=== PATIENT | female | born 1975 | race African-American/Black ===

== ENCOUNTER 2016-11-17 15:10 | Emergency (ER) | payer MEDICAID ==
[~2016-11-17 15:10] MED LIST: ALBUAER3 INH; DIVA250ER PO; LISI-515 PO; METH500T3 PO; NAPR500 PO; PROT40TA PO; SYMB160A INH; VIIB20TA PO; WELL200T PO
[2016-11-17] MEDS ORDERED: ALBUAER3 INH (15:22)
[2016-11-17] MEDS ORDERED: SODIUM CHLORIDE 0.9% FLUSH 10 ML FLUSH IVF PRN (15:30)
--- NOTE | 2016-11-17 15:32 | PD ---
HPI Chief Complaint: Chest Pain Time Seen by Provider: 15:24 Travel History International Travel<30 days: No Contact w/Intl Traveler<30days: No Traveled to known affect area: No History of Present Illness HPI The patient was seen and examined in the presence of the nurse. This patient complains of chest pain. When she woke up from sleep is morning he was present. It's located under her left breast. It waxed and waned during the day. It is much improved at this point no alleviating factors. Duration one day. Severity of symptoms is mild to moderate. She denies history of coronary artery disease. She had septal defect repair of her heart as a young child. PFSH Past Medical History Arthritis: Yes Asthma: Yes Autoimmune Disease: No Bipolar Disorder: Yes Anxiety: Yes Depression: Yes Cardiovascular Problems: Yes Diminished Hearing: Yes (BILATERAL) GERD: Yes Genitourinary: Yes (ENDOMETRIAL ULCERS) Hypertension: Yes Reproductive: Yes Immunizations Current: No Tetanus Vaccination: > 5 Years Influenza Vaccination: No PNEUMOCCOCAL Vaccine (Year): 3 ?: Not : 3 Para: 3 Ovarian Cysts: Yes (LEFT OOPHERECTOMY, OVARIAN CYST ON RIGHT) Past Surgical History Cardiac Surgery: Yes (hole repair) Cholecystectomy: Yes Coronary Stent: Yes Gynecologic Surgery: Yes Hysterectomy: Yes Other Surgery: Yes Social History Alcohol Use: No Tobacco Use: No Substance Use: No Allergies-Medications (Allergen,Severity, Reaction): Coded Allergies: No Known Allergies (Verified , 11/17/16) Reported Meds & Prescriptions Reported Meds & Active Scripts Active Reported Proair Hfa 8.5 GM Inh (Albuterol Sulfate) 90 Mcg/Act Aer 1 Puff INH Q4H PRN 108 mcg/actuation Lisinopril 20 Mg Tab 20 Mg PO DAILY Protonix (Pantoprazole Sodium) 40 Mg Tab 40 Mg PO DAILY Symbicort Inh (Budesonide/Formoterol Fumarate) 160-4.5 Mcg/Act Aero 2 Puff INH Q12HR Proair Hfa 8.5 GM Inh (Albuterol Sulfate) 90 Mcg/Act Aer 2 Puff INH Q4-6H PRN 108 mcg/actuation Review of Systems General / Constitutional: No: Fever Eyes: No: Visual changes HENT: No: Headaches Cardiovascular: Positive: Chest Pain or Discomfort Respiratory: No: Shortness of Breath Gastrointestinal: No: Abdominal Pain Genitourinary: No: Dysuria Musculoskeletal: No: Pain Skin: No Rash Neurologic: No: Weakness Psychiatric: No: Depression Endocrine: No: Polydipsia Hematologic/Lymphatic: No: Easy Bruising Physical Exam Narrative GENERAL: Well-nourished, well-developed patient in no apparent distress. SKIN: Focused skin assessment reveals no rash and nodules. Skin is Warm and dry. HEAD: Atraumatic. Normocephalic. EYES: Pupils equal and round. No scleral icterus. No injection or drainage. ENT: No nasal bleeding or discharge. Mucous membranes pink and moist. NECK: Trachea midline. No JVD. CARDIOVASCULAR: Regular rate and rhythm. No murmur appreciated. RESPIRATORY: No accessory muscle use. Clear to auscultation. Breath sounds equal bilaterally. GASTROINTESTINAL: Abdomen soft, non-tender, nondistended. Hepatic and splenic margins not palpable. MUSCULOSKELETAL: No obvious deformities. No clubbing. No cyanosis. No edema. Readily reproducible chest wall tenderness in the midaxillary line underneath the left breast. NEUROLOGICAL: Awake and alert. No obvious cranial nerve deficits. Motor grossly within normal limits. Normal speech. PSYCHIATRIC: Appropriate mood and affect; insight and judgment normal. Data Data Last Documented VS Vital Signs Date Time Temp Pulse Resp B/P Pulse Ox O2 Delivery O2 Flow Rate FiO2 11/17/16 15:20 89 16 98 Room Air Orders Electrocardiogram (11/17/16 ) Basic Metabolic Panel (Bmp) (11/17/16 15:25) Ckmb (Isoenzyme) Profile (11/17/16 15:25) Complete Blood Count With Diff (11/17/16 15:25) Troponin I (11/17/16 15:25) Chest, Single Ap (11/17/16 15:25) Ecg Monitoring (11/17/16 15:25) Iv Access Insert/Monitor (11/17/16 15:25) Sodium Chloride 0.9% Flush (Ns Flush) (11/17/16 15:30) CKMB (11/17/16 15:30) CKMB% (11/17/16 15:30) Labs Laboratory Tests Test 11/17/16 15:30 White Blood Count 7.0 TH/MM3 Red Blood Count 4.61 MIL/MM3 Hemoglobin 12.7 GM/DL Hematocrit 39.1 % Mean Corpuscular Volume 84.7 FL Mean Corpuscular Hemoglobin 27.6 PG Mean Corpuscular Hemoglobin 32.6 % Concent Red Cell Distribution Width 12.6 % Platelet Count 228 TH/MM3 Mean Platelet Volume 9.7 FL Neutrophils (%) (Auto) 64.8 % Lymphocytes (%) (Auto) 26.5 % Monocytes (%) (Auto) 6.5 % Eosinophils (%) (Auto) 1.4 % Basophils (%) (Auto) 0.8 % Neutrophils # (Auto) 4.5 TH/MM3 Lymphocytes # (Auto) 1.9 TH/MM3 Monocytes # (Auto) 0.5 TH/MM3 Eosinophils # (Auto) 0.1 TH/MM3 Basophils # (Auto) 0.1 TH/MM3 CBC Comment DIFF FINAL Differential Comment Sodium Level 142 MEQ/L Potassium Level 3.3 MEQ/L Chloride Level 110 MEQ/L Carbon Dioxide Level 24.3 MEQ/L Anion Gap 8 MEQ/L Blood Urea Nitrogen 7 MG/DL Creatinine 0.81 MG/DL Estimat Glomerular Filtration 94 ML/MIN Rate Random Glucose 101 MG/DL Calcium Level 8.5 MG/DL Total Creatine Kinase 124 U/L Creatine Kinase MB LESS THAN 0.5 NG/ML Troponin I LESS THAN 0.02 NG/ML MDM Medical Decision Making Medical Screen Exam Complete: Yes Emergency Medical Condition: Yes Medical Record Reviewed: Yes Differential Diagnosis Differential diagnosis includes TX, angina, pericarditis, pleurisy, GERD, anxiety. Narrative Course I have reviewed the patient's electronic medical record. IV placed I reviewed the EKG which shows sinus rhythm but no acute ST elevation I reviewed the chest x-ray which is normal Extended cardiac monitoring shows sinus rhythm without ectopy CBC is normal Metabolic profile is normal CK is normal Troponin is normal On recheck the patient and well. No indication of ACS. Her chest pain is clearly musculoskeletal chest wall pain. His reproducible with palpation in a very obvious manner. She will not require inpatient stay for this. He will call her family physician Saturday for follow-up. Diagnosis Primary Impression: Musculoskeletal chest pain Additional Instructions: The patient was advised to follow up with their physician and return if they worsen. Med/Other Pt SpecificInfo: Other Disposition: 01 DISCHARGE HOME Condition: Stable Hitesh Sousa MD Nov 17, 2016 15:32
[2016-11-17 15:44] LABS: AUTOMATED NEUTROPHIL # 4.5 TH/MM3 (1.8-7.7); BASOPHIL # 0.1 TH/MM3 (0-0.2); BASOPHIL % 0.8 % (0.0-2.0); EOSINOPHIL # 0.1 TH/MM3 (0-0.4); EOSINOPHIL % 1.4 % (0.0-4.0); HEMATOCRIT 39.1 % (35.0-46.0); HEMO FLAGS DIFF FINAL; LYMPH % 26.5 % (9.0-44.0); LYMPHOCYTE # 1.9 TH/MM3 (1.0-4.8); MEAN CELL VOLUME 84.7 FL (80.0-100.0); MEAN CORPUSCULAR HEMOGLOBIN 27.6 PG (27.0-34.0); MEAN CORPUSCULAR HGB CONC 32.6 % (32.0-36.0); MONO % 6.5 % (0.0-8.0); NEUT % 64.8 % (16.0-70.0); PLATELET COUNT 228 TH/MM3 (150-450); RED BLOOD COUNT 4.61 MIL/MM3 (4.00-5.30); RED CELL DISTRIBUTION WIDTH 12.6 % (11.6-17.2)
[2016-11-17 16:05] LABS: ANION GAP 8 MEQ/L (5-15); BICARBONATE 24.3 MEQ/L (21.0-32.0); BLOOD UREA NITROGEN 7 MG/DL (7-18); CHLORIDE 110 MEQ/L (98-107); GLOMERULAR FILTRATION RATE 94 ML/MIN (>89); POTASSIUM 3.3 MEQ/L (3.5-5.1); SODIUM (NA) 142 MEQ/L (136-145)
[2016-11-17 16:09] LABS: CREATINE KINASE 124 U/L (26-192)
[2016-11-17 16:21] LABS: CKMB LESS THAN 0.5 NG/ML (0.5-3.6)
--- NOTE | 2016-11-17 16:29 | RADRPT ---
EXAM DATE/TIME: 11/17/2016 15:52 [facility] COMPARISON: No previous studies available for comparison. INDICATIONS : Chest pain. MEDICAL HISTORY : None. SURGICAL HISTORY : CABG. ENCOUNTER: Initial ACUITY: 1 day PAIN SCORE: 7/10 LOCATION: Bilateral chest FINDINGS: A single view of the chest demonstrates subsegmental basilar air space disease. No effusion. No pneum othorax. Heart size upper limits normal. Median sternotomy. CONCLUSION: 1. Subsegmental airspace disease at the lung bases most characteristic of atelectasis. No effusion or pneumothorax. Deon Larios MD on November 17, 2016 at 16:27 Board Certified Radiologist. This report was verified electronically.
--- NOTE | 2016-11-18 14:16 | EKG ---
Date Performed: 11/17/2016 Time Performed: 15:25:27 PTAGE: 40 years EKG: Low QRS in precordial leads Small inferior Q waves of undetermined significance Nonspecific T wave changes anteriorly Compared to previous tracing, previous tracing had such marked baseline ar tifact that it was not interpretable. BORDERLINE ECG PREVIOUS TRACING : 06/25/2016 20.31 DOCTOR: Juan J Gallego Interpretating Date/Time 11/18/2016 14:16:09
== END 2016-11-17 18:55 | disposition home or self-care (01) ==
LOC: NEPC 15:10
DX: R07.89 Other chest pain (principal); R94.31 Abnormal electrocardiogram [ECG] [EKG]; I10 Essential (primary) hypertension; H91.93 Unspecified hearing loss, bilateral; Z87.39 Personal history of other diseases of the musculoskeletal system and connective tissue; Z87.09 Personal history of other diseases of the respiratory system; Z86.59 Personal history of other mental and behavioral disorders; Z86.79 Personal history of other diseases of the circulatory system; Z87.19 Personal history of other diseases of the digestive system; Z87.42 Personal history of other diseases of the female genital tract
CPT/HCPCS: 71010; 80048; 82550; 82552; 84484; 85025; 93005

== ENCOUNTER 2016-11-29 22:34 | Emergency (ER) | payer MEDICAID ==
[~2016-11-29] VITALS: Ht 162.6 cm; Wt 103.0 kg
[~2016-11-29 22:34] MED LIST changes: -DIVA250ER PO; -METH500T3 PO; -NAPR500 PO; -VIIB20TA PO; -WELL200T PO
[2016-11-29 23:12] VITALS: BP 130/62; PULSE 66; RESP 16; TEMP 98.2; O2SAT 96
[2016-11-29] MEDS ORDERED: SODIUM CHLOR 0.9% 1000 ML INJ 1,000 ML IV SCH (23:26)
[2016-11-29] MEDS ORDERED: SODIUM CHLORIDE 0.9% FLUSH 10 ML FLUSH IV FLUSH PRN (23:30)
[2016-11-29 23:45] LABS: BASOPHIL # 0.1 TH/MM3 (0-0.2); BASOPHIL % 0.9 % (0.0-2.0); EOSINOPHIL # 0.1 TH/MM3 (0-0.4); EOSINOPHIL % 1.5 % (0.0-4.0); HEMATOCRIT 36.3 % (35.0-46.0); HEMO FLAGS DIFF FINAL; LYMPH % 33.5 % (9.0-44.0); LYMPHOCYTE # 2.4 TH/MM3 (1.0-4.8); MEAN CELL VOLUME 83.5 FL (80.0-100.0); MEAN CORPUSCULAR HEMOGLOBIN 28.2 PG (27.0-34.0); MEAN CORPUSCULAR HGB CONC 33.8 % (32.0-36.0); MONO % 8.9 % (0.0-8.0); NEUT % 55.2 % (16.0-70.0); PLATELET COUNT 212 TH/MM3 (150-450); RED BLOOD COUNT 4.35 MIL/MM3 (4.00-5.30); RED CELL DISTRIBUTION WIDTH 12.8 % (11.6-17.2); WHITE BLOOD COUNT 7.3 TH/MM3 (4.0-11.0)
[2016-11-30 00:09] LABS: ANION GAP 6 MEQ/L (5-15); AST (GOT) 17 U/L (15-37); BICARBONATE 27.1 MEQ/L (21.0-32.0); BLOOD UREA NITROGEN 8 MG/DL (7-18); CHLORIDE 108 MEQ/L (98-107); GLOMERULAR FILTRATION RATE 74 ML/MIN (>89); POTASSIUM 3.3 MEQ/L (3.5-5.1); SODIUM (NA) 141 MEQ/L (136-145)
[2016-11-30 00:12] LABS: ALKALINE PHOSPHATASE 99 U/L (45-117); ALT (GPT) 29 U/L (10-53); TOTAL BILIRUBIN ADULT 0.3 MG/DL (0.2-1.0)
[2016-11-30 00:15] LABS: BACTERIA, URINE RARE /hpf; BLOOD, URINE NEG (NEG); COMMENT (UR) CULT NOT INDICATED; CULTURE IF INDICATED CULT NOT INDICATED; GLUCOSE,URINE NEG (NEG); HYALINE CAST, URINE 1 /lpf (RARE); KETONE, URINE NEG (NEG); MUCUS URINE FEW /lpf (OCC); NITRITE,URINE NEG (NEG); PH, URINE 6.5 (5.0-8.5); SQUAMOUS EPITHELIAL CELL URINE 6 /hpf (0-5); URINE COLOR YELLOW (YELLW/STRAW)
[2016-11-30] MEDS ORDERED: POTASSIUM CHLORIDE 25 MEQ EFFERVESCENT TAB PO ONE (00:15)
--- NOTE | 2016-11-30 00:24 | PD ---
HPI Chief Complaint: Abdominal Pain Time Seen by Provider: 23:14 Travel History International Travel<30 days: No Contact w/Intl Traveler<30days: No Traveled to known affect area: No History of Present Illness HPI 40-year-old female came to the emergency room with history of left upper quadrant pain. Patient says the pain occurred 45 minutes ago sudden onset, sharp in nature and severe. No radiation of the pain. No aggravating or relieving factors. However pain is slowly easing up now. Vital signs are stable. Patient has a GI specialist that she follows up with. She also had a CAT scan of her abdomen couple days ago. She is due to get an ultrasound of her liver next week. Vital signs are otherwise stable. No history of vomiting or diarrhea. Patient is getting treated for UTI. She has taken 2 doses of Bactrim so far PFSH Past Medical History Narrative Medical List of her past medical, surgical, social and family history is reviewed from the nursing note. Arthritis: Yes Asthma: Yes Autoimmune Disease: No Bipolar Disorder: Yes Anxiety: Yes Depression: Yes Cardiovascular Problems: Yes Diminished Hearing: Yes (BILATERAL) GERD: Yes Genitourinary: Yes (ENDOMETRIAL ULCERS) Hypertension: Yes Reproductive: Yes Immunizations Current: No Tetanus Vaccination: > 5 Years Influenza Vaccination: No PNEUMOCCOCAL Vaccine (Year): 3 ?: Not : 3 Para: 3 Ovarian Cysts: Yes (LEFT OOPHERECTOMY, OVARIAN CYST ON RIGHT) Past Surgical History Cardiac Surgery: Yes (hole repair) Cholecystectomy: Yes Coronary Stent: Yes Gynecologic Surgery: Yes Hysterectomy: Yes Other Surgery: Yes Social History Alcohol Use: No Tobacco Use: No Substance Use: No Allergies-Medications (Allergen,Severity, Reaction): Coded Allergies: No Known Allergies (Verified , 11/29/16) Comments No known drug allergies. Reported Meds & Prescriptions Reported Meds & Active Scripts Active Reported Proair Hfa 8.5 GM Inh (Albuterol Sulfate) 90 Mcg/Act Aer 1 Puff INH Q4H PRN 108 mcg/actuation Protonix (Pantoprazole Sodium) 40 Mg Tab 40 Mg PO DAILY Symbicort Inh (Budesonide/Formoterol Fumarate) 160-4.5 Mcg/Act Aero 2 Puff INH Q12HR Proair Hfa 8.5 GM Inh (Albuterol Sulfate) 90 Mcg/Act Aer 2 Puff INH Q4-6H PRN 108 mcg/actuation Narrative Medication List of her home medications reviewed from the nursing note. Review of Systems Except as stated in HPI: all other systems reviewed are Neg Physical Exam Narrative GENERAL: Awake, alert, obese, SKIN: Focused skin assessment warm/dry. HEAD: Atraumatic. Normocephalic. EYES: Pupils equal and round. No scleral icterus. No injection or drainage. ENT: No nasal bleeding or discharge. Mucous membranes pink and moist. NECK: Trachea midline. No JVD. CARDIOVASCULAR: Regular rate and rhythm. No murmur appreciated. RESPIRATORY: No accessory muscle use. Clear to auscultation. Breath sounds equal bilaterally. GASTROINTESTINAL: Abdomen soft, non-tender, nondistended. Hepatic and splenic margins not palpable. MUSCULOSKELETAL: No obvious deformities. No clubbing. No cyanosis. No edema. NEUROLOGICAL: Awake and alert. No obvious cranial nerve deficits. Motor grossly within normal limits. Normal speech. PSYCHIATRIC: Appropriate mood and affect; insight and judgment normal. Data Data Last Documented VS Vital Signs Date Time Temp Pulse Resp B/P Pulse Ox O2 Delivery O2 Flow Rate FiO2 11/29/16 23:12 98.2 66 16 130/62 96 Orders Complete Blood Count With Diff (11/29/16 23:26) Comprehensive Metabolic Panel (11/29/16 23:26) Lipase (11/29/16 23:26) Urinalysis - C+S If Indicated (11/29/16 23:26) Iv Access Insert/Monitor (11/29/16 23:26) Ecg Monitoring (11/29/16 23:26) Oximetry (11/29/16 23:26) Sodium Chlor 0.9% 1000 Ml Inj (Ns 1000 M (11/29/16 23:26) Sodium Chloride 0.9% Flush (Ns Flush) (11/29/16 23:30) Potassium Chloride Eff (K-Lyte Cl Eff) (11/30/16 00:15) Labs Laboratory Tests Test 11/29/16 11/29/16 23:30 23:35 White Blood Count 7.3 TH/MM3 Red Blood Count 4.35 MIL/MM3 Hemoglobin 12.3 GM/DL Hematocrit 36.3 % Mean Corpuscular Volume 83.5 FL Mean Corpuscular Hemoglobin 28.2 PG Mean Corpuscular Hemoglobin 33.8 % Concent Red Cell Distribution Width 12.8 % Platelet Count 212 TH/MM3 Mean Platelet Volume 10.1 FL Neutrophils (%) (Auto) 55.2 % Lymphocytes (%) (Auto) 33.5 % Monocytes (%) (Auto) 8.9 % Eosinophils (%) (Auto) 1.5 % Basophils (%) (Auto) 0.9 % Neutrophils # (Auto) 4.0 TH/MM3 Lymphocytes # (Auto) 2.4 TH/MM3 Monocytes # (Auto) 0.6 TH/MM3 Eosinophils # (Auto) 0.1 TH/MM3 Basophils # (Auto) 0.1 TH/MM3 CBC Comment DIFF FINAL Differential Comment Sodium Level 141 MEQ/L Potassium Level 3.3 MEQ/L Chloride Level 108 MEQ/L Carbon Dioxide Level 27.1 MEQ/L Anion Gap 6 MEQ/L Blood Urea Nitrogen 8 MG/DL Creatinine 1.00 MG/DL Estimat Glomerular Filtration 74 ML/MIN Rate Random Glucose 98 MG/DL Calcium Level 8.2 MG/DL Total Bilirubin 0.3 MG/DL Aspartate Amino Transf 17 U/L (AST/SGOT) Alanine Aminotransferase 29 U/L (ALT/SGPT) Alkaline Phosphatase 99 U/L Total Protein 7.1 GM/DL Albumin 3.2 GM/DL Lipase 173 U/L Urine Color YELLOW Urine Turbidity HAZY Urine pH 6.5 Urine Specific [place] 1.016 Urine Protein NEG mg/dL Urine Glucose (UA) NEG mg/dL Urine Ketones NEG mg/dL Urine Occult Blood NEG Urine Nitrite NEG Urine Bilirubin NEG Urine Urobilinogen LESS THAN 2.0 MG/DL Urine Leukocyte Esterase NEG Urine RBC LESS THAN 1 /hpf Urine WBC 1 /hpf Urine Squamous Epithelial 6 /hpf Cells Urine Bacteria RARE /hpf Urine Hyaline Casts 1 /lpf Urine Mucus FEW /lpf Microscopic Urinalysis Comment CULT NOT INDICATED MDM Medical Decision Making Medical Screen Exam Complete: Yes Emergency Medical Condition: Yes Medical Record Reviewed: Yes Differential Diagnosis Colitis, abdominal pain NOS, constipation Narrative Course 12:26 AM blood test results of back and within normal limit. UA is negative. Patient's pain is almost gone at this point. I'm comfortable discharging her home. She'll follow up with her primary care. Procedures EKG Prior to Arrival: No Diagnosis Primary Impression: Abdominal pain, unspecified site Referrals: Primary Care Physician Additional Instructions: Please return to the ER if the condition worsens or any other new concerns. Otherwise follow-up with her primary care. Med/Other Pt SpecificInfo: No Change to Meds Disposition: 01 DISCHARGE HOME Condition: Stable Dali Knapp MD Nov 30, 2016 00:24
== END 2016-11-30 01:00 | disposition home or self-care (01) ==
LOC: NEDAMB 22:34 → NEPC 11-30 01:00
DX: R10.12 Left upper quadrant pain (principal)
CPT/HCPCS: 80053; 81001; 83690; 85025; 96360; 99284; J7030

== ENCOUNTER 2017-05-04 16:19 | Emergency (ER) | payer MEDICAID ==
[~2017-05-04] VITALS: Ht 162.6 cm; Wt 110.0 kg
[~2017-05-04 16:19] MED LIST changes: -LISI-515 PO
[2017-05-04 16:21] VITALS: BP 155/98; PULSE 98; RESP 18; TEMP 98.4; O2SAT 99
--- NOTE | 2017-05-04 16:26 | PD ---
Physical Exam Date Seen by Provider: May 04, 2017 Time Seen by Provider: 16:23 Data Data Last Documented VS Vital Signs Date Time Temp Pulse Resp B/P (MAP) Pulse Ox O2 Delivery O2 Flow Rate FiO2 05/04/17 16:21 98.4 98 18 155/98 (117) 99 MDM Supervised Visit with JOSSELIN: No Narrative Course 41-year-old female presents to the ED for evaluation of 8/10 left upper quadrant abdominal pain 30 minutes. Denies nausea, vomiting, diarrhea. She endorses history of similar pain in the past secondary to "like liver failure and some kind of gastritis." Vitals reviewed. Patient seen in triage, awaiting bed placement. Elsa Silva May 04, 2017 16:26
[2017-05-04 18:10] LABS: AUTOMATED NEUTROPHIL # 4.3 TH/MM3 (1.8-7.7); BASOPHIL # 0.1 TH/MM3 (0-0.2); BASOPHIL % 0.8 % (0.0-2.0); EOSINOPHIL # 0.1 TH/MM3 (0-0.4); HEMO FLAGS DIFF FINAL; LYMPH % 30.9 % (9.0-44.0); LYMPHOCYTE # 2.3 TH/MM3 (1.0-4.8); MEAN CELL VOLUME 84.9 FL (80.0-100.0); MEAN CORPUSCULAR HEMOGLOBIN 28.4 PG (27.0-34.0); MEAN CORPUSCULAR HGB CONC 33.5 % (32.0-36.0); MONO % 8.4 % (0.0-8.0); NEUT % 57.9 % (16.0-70.0); PLATELET COUNT 230 TH/MM3 (150-450); RED BLOOD COUNT 4.59 MIL/MM3 (4.00-5.30); RED CELL DISTRIBUTION WIDTH 12.5 % (11.6-17.2); WHITE BLOOD COUNT 7.4 TH/MM3 (4.0-11.0)
[2017-05-04 18:30] LABS: BLOOD, URINE NEG (NEG); COMMENT (UR) CULT NOT INDICATED; CULTURE IF INDICATED CULT NOT INDICATED; GLUCOSE,URINE NEG (NEG); KETONE, URINE NEG (NEG); NITRITE,URINE NEG (NEG); PH, URINE 6.5 (5.0-8.5); SQUAMOUS EPITHELIAL CELL URINE <1 /hpf (0-5); URINE COLOR LIGHT-YELLOW (YELLW/STRAW)
[2017-05-04 18:41] LABS: ANION GAP 7 MEQ/L (5-15); AST (GOT) 20 U/L (15-37); BICARBONATE 26.9 MEQ/L (21.0-32.0); BLOOD UREA NITROGEN 9 MG/DL (7-18); CHLORIDE 107 MEQ/L (98-107); GLOMERULAR FILTRATION RATE 97 ML/MIN (>89); POTASSIUM 3.9 MEQ/L (3.5-5.1); SODIUM (NA) 141 MEQ/L (136-145)
[2017-05-04 18:44] LABS: ALKALINE PHOSPHATASE 123 U/L (45-117); ALT (GPT) 36 U/L (10-53); TOTAL BILIRUBIN ADULT 0.4 MG/DL (0.2-1.0)
== END 2017-05-04 19:10 | disposition left against medical advice (07) ==
LOC: NED 16:19
DX: R10.12 Left upper quadrant pain (principal); Z53.21 Procedure and treatment not carried out due to patient leaving prior to being seen by health care provider
CPT/HCPCS: 80053; 81001; 83690; 85025; 99283